=== PATIENT | male | born 1960 | race Caucasian/White ===

== ENCOUNTER 2018-12-14 14:03 | Emergency (ER) | payer BC ==
[~2018-12-14] VITALS: Ht 182.9 cm; Wt 122.7 kg
[2018-12-14 14:06] VITALS: Ht 182.9 cm; Wt 122.7 kg
[2018-12-14] MEDS ORDERED: LISINOPRIL10 MG PO (14:08)
[2018-12-14] MEDS ORDERED: HYDROCODON-ACE1 EA10 PO (14:08)
[2018-12-14] MEDS ORDERED: ZANAFLEX4 MG PO (16:18)
[2018-12-14] MEDS ORDERED: VOLTAREN75 MG PO (16:18)
[2018-12-14] MEDS ORDERED: OMEPRAZOLE20 M1 PO (16:24)
[2018-12-14 16:40] VITALS: BP 156/69
== END 2018-12-14 16:44 | disposition home or self-care (01) ==
LOC: D.ER 14:03
DX: M25.511 Pain in right shoulder (principal); M62.838 Other muscle spasm; M54.2 Cervicalgia